=== PATIENT | female | born 1980 | race African-American/Black ===

== ENCOUNTER 2018-11-10 09:07 | Emergency (ER) | payer OTHER ==
[~2018-11-10] VITALS: Ht 162.6 cm; Wt 83.9 kg
== END 2018-11-10 18:29 | disposition home or self-care (01) ==
LOC: ER 09:07
DX: D50.0 Iron deficiency anemia secondary to blood loss (chronic) (principal); N93.8 Other specified abnormal uterine and vaginal bleeding